=== PATIENT | male | born 2005 | race Two or more races ===

== ENCOUNTER 2023-04-12 16:44 | Emergency (ER) | payer OTHER, SELFPAY ==
--- NOTE | ~2023-04-12 | XR_ITS ---
EXAMINATION: XR ELBOW, LEFT CLINICAL INFORMATION: Left elbow injury. COMPARISON: None available. TECHNIQUE: AP, lateral, and oblique views of the left elbow. FINDINGS: Suboptimal evaluation of the frontal view due to slight obliquity/rotation. No discrete fractures or subluxation. Small anterior and posterior joint effusions. XR/XR elbow LT min 3V IMPRESSION: Small anterior and posterior joint effusions without discrete fractures or subluxation, although evaluation of the AP view is somewhat limited as above. The presence of a posterior joint effusion is usually associated with a fracture, therefore a repeat AP view and if clinically deemed appropriate evaluation with CT is recommended.
[2023-04-12 17:57] VITALS: BP 103/69; PULSE 66; RESP 18; TEMP 36.8; O2SAT 98; BMI 1080.2
--- NOTE | 2023-04-12 19:08 | ED_ITS ---
HPI - Extremity Problem General Chief complaint: Extremity Injury, Upper Stated complaint: fall, elbow pain Time Seen by Provider: 04/12/23 18:50 Source: patient Mode of arrival: ambulatory Limitations: no limitations History of Present Illness HPI Narrative: This is a 17-year-old male previously healthy, [id number] here with left elbow pain after a slip and fall landing directly on the left elbow. Since then patient has had left elbow pain and difficulty with range of motion. No associated numbness, weakness or tingling of the extremity. Patient denies head strike or loss of consciousness. Related Data Allergies Allergy/AdvReac Type Severity Reaction Status Date / Time Unable to Assess Allergy Verified 04/12/23 18:57 Review of Systems Review of Systems: Yes all other systems are reviewed and are negative Constitutional: Constitutional: Reports no additional constitutional complaints, Denies body ache(s), Denies chills, Denies fever(s), Denies headache(s) and Denies weakness Eyes: Eyes: Reports no additional eye complaints and Denies change in vision ENT: Reports system reviewed and no additional complaints, except as documented, Denies dizziness, Denies headache(s), Denies nasal congestion, Denies nasal discharge and Denies neck pain Cardiovascular: Cardiovascular: Reports no additional cardiovascular complaints, Denies chest pain, Denies leg edema and Denies dyspnea Respiratory: Respiratory: Reports no additional respiratory complaints, Denies cough and Denies dyspnea Gastrointestinal: Gastrointestinal: Reports no additional gastrointestinal complaints, Denies abdominal pain, Denies diarrhea, Denies nausea and Denies vomiting Genitourinary: Genitourinary: Denies urinary incontinence Musculoskeletal: Musculoskeletal: Reports no additional musculoskeletal complaints, Denies back pain, Reports arthralgias, Reports joint swelling, Reports limited range of motion, Denies neck pain, Denies numbness and Denies tingling Integumentary/Breasts: Skin/Breast: Reports system reviewed and no additional complaints, except as docu and Denies rash Neurologic: Reports system reviewed and no additional complaints, except as documented, Denies Abnormal speech present, Denies dizziness, Denies headache(s), Denies numbness, Denies tingling and Denies weakness PMFSH Past Medical History Attestation statement: The following information was validated with the patient. Source: old records reviewed and nursing notes reviewed Social History Social History Advance Directives: No Advance Directives Information Provided: No Physical Exam Vital Signs: Vital Signs: Last Vital Signs Temp 98.3 F 04/12/23 17:57 Pulse 66 04/12/23 17:57 Resp 18 04/12/23 17:57 BP 103/69 04/12/23 17:57 Pulse Ox 98 04/12/23 17:57 BMI result Body Mass Index 1080.2 Const: General: cooperative, healthy appearing, comfortable and no acute distress Orientation/consciousness: patient oriented x3 Limitations: no limitations HEENT: Head: Yes normal to inspection Ears: hearing grossly normal bilaterally General nose exam: Normal external nose present Face and sinus: Yes normal facial exam Mouth: Normal oral and palatal mucosa present Throat: Yes posterior oropharynx normal Eyes: General: appearance normal, both eyes and all related structures Pupils: Equal, round and reactive pupils present Neck: Neck: Yes normal visual inspection Chest: Chest palpation & inspection: normal inspection of the chest Resp: Effort & Inspection: normal respiratory effort Auscultation: clear to auscultation bilaterally Cardio: Rate: regular rate Rhythm: regular rhythm Peripheral pulses: Peripheral pulses 2+ throughout GI: Inspection: Yes normal to inspection Palpation (GI): Soft to palpation and nontender Auscultation: normal bowel sounds Back/Spine/Pelvis: Thoracic/Lumbar Spine: thoracic and lumbar spine normal to inspection Skin: General skin exam: no rashes or lesions noted Neuro: General: patient oriented x3, no focal motor deficits and normal sensation to monofilament Cranial nerves: Yes Equal, round and reactive pupils present Cognition (Neuro): normal cognition Speech: No Abnormal speech present Gait exam (Neuro): Normal gait present Motor exam (neuro): 5/5 motor strength present throughout Extrem: Other: On exam there is tenderness on palpation to the proximal radius and lateral el bow with mild swelling. There is limited extension of the elbow joint due to pain. There is no obvious deformity. There are normal radial and ulnar pulses. Normal sensation There is no tenderness on palpation over the left shoulder, left wrist, left hand. There is full range of motion of proximal and distal joints. General: Yes normal to inspection Course Course Course Narrative: X-ray of the left elbow shows small anterior and posterior joint effusions without discrete fracture. Evaluation of the AP view is somewhat limited as discussed in the finding. Presence of a posterior joint effusion is usually associated with fracture there for repeat AP view if clinically deemed is a CT would be recommended. Patient unable to complete additional views, CT can be completed outpatient with orthopedic consultation. Patient will be placed in a splint and given orthopedic follow-up. Reviewed rice. Reviewed worrisome signs and symptoms of when to return to the emergency room. Comfortable plan for discharge home. Medical Decision Making Medical Decision Making MDM Narrative: 17-year-old male [id number] here with left elbow pain and difficulty with range of motion after a mechanical fall. On exam patient has tenderness, swelling and limited range of motion of the left elbow. Will check x-rays. CMS intact distally Differential Diagnosis Differential Diagnoses: The differential diagnosis associated with the presentation includes Fracture, sprain, dislocation, contusion Admission/Observation Consideration of admission/observation: Escalation of care including admission/observation considered See course of care Consult Healthcare Provider Orthopedic Independent Interpretation I performed an independent interpretation of an: Plain X-Ray Interpretation: I independently reviewed the x-ray and agree with the radiology report Radiology Impression Discussion of test interpretation with radiology: I have reviewed the radiologist's reading. Radiologist Impression: [address] [address] XRay Report Signed Patient: Maximiliano Fagan MR#: [id number] : 2005 Acct:[id number] Age/Sex: 17 / M ADM Date: 04/12/23 Loc: .ED Attending Dr: Ordering Physician: Generic ED Physician Date of Service: 04/12/23 Procedure(s): XR elbow LT min 3V Accession Number(s): [id number] cc: Generic ED Physician~ EXAMINATION: XR ELBOW, LEFT CLINICAL INFORMATION: Left elbow injury.? COMPARISON: None available.? TECHNIQUE: AP, lateral, and oblique views of the left elbow. FINDINGS: Suboptimal evaluation of the frontal view due to slight obliquity/rotation. No discrete fractures or subluxation. Small anterior and posterior joint effusions.? XR/XR elbow LT min 3V IMPRESSION: Small anterior and posterior joint effusions without discrete fractures or subluxation, although evaluation of the AP view is somewhat limited as above. ? The presence of a posterior joint effusion is usually associated with a fracture, therefore a repeat AP view and if clinically deemed appropriate evaluation with CT is recommended. Tests considered The following testing was considered but not selected: See course of care Prescription Management I considered prescription management with: Pain Medication pain well controlled with nsaid Discharge Plan Discharge Clinical Impression: Elbow pain Patient Disposition: Home, Self-Care Instructions: Splint Care (ED), Arm Pain (ED) Additional Instructions: Your x-ray does not show an obvious fracture however there is fluid in the joint which is concerning for small fracture. Therefore we are placing you in a splint and recommending you follow-up with orthopedics outpatient. Keep the splint clean and dry. Elevate the arm Take Motrin for pain Call Orthopedics on Saturday for follow-up Referrals: [facility] [place] [facility] [Provider Group] - 1 week Stand Alone Forms: Work/School Release Interventions: ED Discharge Assessment Last Done: 04/12/23 19:47 Discharge Date/Time: 04/12/23 19:47
== END 2023-04-12 19:47 | disposition home or self-care (01) ==
PROVIDERS: Emergency Provider Emergency Medicine; PCP Family Medicine
DX: S59.902A Unspecified injury of left elbow, initial encounter (principal); W01.0XXA Fall on same level from slipping, tripping and stumbling without subsequent striking against object, initial encounter; Y93.9 Activity, unspecified; Y92.9 Unspecified place or not applicable; Y99.9 Unspecified external cause status
CPT/HCPCS: 73080; 99283

== ENCOUNTER 2023-05-02 09:44 | Outpatient (AMB) | payer MEDICAID, SELFPAY ==
--- NOTE | 2023-05-02 09:57 | A.OFFVIS_ITS ---
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 Patient reports left elbow pain after a slip and fall landing directly on the left elbow. He presented to [facility] ED on 04/12/23 where he was placed in a splint and sling. Currently pain has improved, stating no pain today. He has stiffness in left shoulder with sling wear. Numbness and tingling in fingers. 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 He was seen at ED on 04/12/23 where he was placed in a splint and sling. He states his pain is currently improved and denies having any pain today. He does c/o numbness and tingling in his fingers and stiffness in his left shoulder with the use of sling. [facility] Social History (Updated 05/02/23 @ 10:03 by FIDELIA Telles) Patient Tobacco Use Status: Former Tobacco user Current occupation: right hand dominant Review of Systems Const All systems reviewed & are unremarkable except as noted in HPI and below Physical Exam Const General: cooperative, healthy appearing, comfortable, no acute distress, well developed and alert Orientation/consciousness: patient oriented x3 HEENT Head: Yes normal to inspection, Yes normocephalic and Yes atraumatic Eyes General: appearance normal, both eyes and all related structures Resp Effort & Inspection: normal respiratory effort and able to speak in complete sentences Cardio Rate: regular rate Peripheral pulses: Peripheral pulses 2+ throughout GI Palpation (GI): Soft to palpation Skin Lesions: no lesions Rashes: no rashes Neuro General: patient oriented x3 Extrem Other: Left elbow: Normal to inspection. No swelling or bruising. There is no tenderness along the radial head or medial and lateral epicondyle. No tenderness along the olecranon. He can flex and extend the elbow. Supination and pronation without pain. NVI. Assessment & Plan Assessment & Plan (1) Left elbow contusion: Code(s): S50.02XA - Contusion of left elbow, initial encounter Qualifiers: Encounter type: initial encounter Qualified Code(s): S50.02XA - Contusion of left elbow, initial encounter Plan While in the office today I did go over some exercises to help relax the arm and go through some ROM techniques. I reassure him that there is no evidence of fracture on x-rays and given his clinical exam findings, I feel as though he may just have a contusion from the fall. He should increase activity as tolerated and if symptoms persist or worsens, patient will contact the office, otherwise follow-up as needed. Patient Instructions: Scribed for Grazyna Villarreal PA-C, by Aleks Reese medical services manager, on 05/02/2023 at 10:00 AM EST. I, Grazyna Villarreal PA-C, have personally reviewed and agree with the information entered by the scribe. Coding Level of Care Code New Pt Level 3 (50822) Diagnoses Contusion of left elbow, initial encounter S50.02XA Encounter type: initial encounter
== END 2023-05-02 10:31 | disposition home or self-care (01) ==
PROVIDERS: PCP Family Medicine; Visit Provider Physician Assistant
DX: S50.02XA Contusion of left elbow, initial encounter (principal)
CPT/HCPCS: 99203

== ENCOUNTER → 2023-05-02 09:44 | Outpatient (BNVA) | payer OTHER, SELFPAY | PROVIDERS: PCP Family Medicine; Visit Provider Physician Assistant | DX: S50.02XA Contusion of left elbow, initial encounter (principal) | CPT/HCPCS: 99212 ==